=== PATIENT | female | born 1985 | race Caucasian/White ===

== ENCOUNTER 2024-03-31 15:30 | Emergency (ER) | payer OTHER, SELFPAY ==
--- NOTE | ~2024-03-31 | XR_ITS ---
3 VIEWS LUMBAR SPINE Ordering provider: Porsche Mahmood APRN History: . fall . Comparison: None. FINDINGS: VERTEBRAL BODIES: No visible fracture or subluxation. Mild degenerative changes. Severe bending of th e coccyx. DISK SPACES: Mild narrowing of the disc L3-L4, L4-L5 and L5-S1. Facet joint disease at the level of L 4-L5 and L5-S1. SOFT TISSUES: Normal. IMPRESSION: No acute osseous abnormality lumbar spine. Multilevel degenerative disc disease. Reviewed, dictated and finalized at location A. [employer]
--- NOTE | ~2024-03-31 | XR_ITS ---
XR hip LT min 2V Ordering provider: Porsche Mahmood APRN History: . left post hip mid low back pain s/p fall today . Comparison: None. FINDINGS: BONES: Lucency is seen in the left intertrochanteric area which may indicate a fracture. CT evaluatio n advised. HIP JOINT SPACES: Normal. SACROILIAC JOINT SPACES/LUMBAR SPINE: The sacroiliac joint spaces are normal. Normal visualized lower lumbar spine. PUBIC SYMPHYSIS: Normal. SOFT TISSUES: Normal. IMPRESSION: Lucency in the left intertrochanteric area which may indicate a fracture. CT evaluation advised. Reviewed, dictated and finalized at location A. FING BRANCH MANAGER IMPRESSION: Lucency in the left intertrochanteric area which may indicate a fracture. CT ev aluation advised.
--- NOTE | 2024-03-31 15:33 | ED_ITS ---
HPI - Fall General Chief Complaint: Fall Stated Complaint: FALL Time Seen by Provider: 03/31/24 15:31 Source: patient Mode of arrival: ambulatory Limitations: no limitations History of Present Illness HPI Narrative: Patient is a 39-year-old female presents with low back pain and left hip pain after falling on eyes taking out the trash at work today. Patient also has minor abrasions on hands from catching herself. Denies any numbness, tingling, weakness to lower extremities. Denies hitting her head on fall. Able to walk with normal gait. Related Data Home Medications Medication Instructions Recorded Confirmed cetirizine 10 mg tablet 10 mg PO DAILY 03/31/24 03/31/24 cyclobenzaprine 5 mg tablet 5 mg PO TID 03/31/24 03/31/24 pantoprazole 40 mg tablet,delayed 40 mg PO DAILY 03/31/24 03/31/24 release trazodone 50 mg tablet 50 mg PO HS 03/31/24 03/31/24 Allergies Allergy/AdvReac Type Severity Reaction Status Date / Time No Known Allergies Allergy Unknown Verified 03/31/24 15:35 Review of Systems Review of Systems: All systems reviewed & are unremarkable except as noted in HPI and below Constitutional: Constitutional: Denies body ache(s), Denies chills, Denies fatigue, Denies fever(s), Denies headache(s), Denies malaise and Denies weakness Eyes: Eyes: Denies blurry vision, Denies irritation and Denies loss of vision ENT: Denies otalgia, Denies headache(s), Denies nasal discharge, Denies sinus pain and Denies sore throat Cardiovascular: Cardiovascular: Denies chest pain, Denies irregular heart rhythm and Denies dyspnea Respiratory: Respiratory: Denies dyspnea Gastrointestinal: Gastrointestinal: Denies abdominal pain, Denies melena, Denies hematochezia, Denies diarrhea, Denies nausea and Denies vomiting Musculoskeletal: Musculoskeletal: Reports back pain, Denies myalgias and Denies arthralgias Integumentary/Breasts: Skin/Breast: Denies pruritus and Denies rash Neurologic: Denies headache(s), Denies loss of vision and Denies weakness Psychiatric: Psychiatric: Reports no additional psychiatric complaints Endocrine: Endocrine: Denies fatigue PMFSH Comments At time of signature, agree with nursing past medical, surgical, social and family history. There is no relevant family history pertinent to the presenting complaint. Exam Const: General: cooperative, healthy appearing, comfortable, no acute distress and well nourished Nutritional Appearance: well nourished Orientation/consciousness: patient oriented x3 Limitations: no limitations HENMT: Head: normal to inspection, normocephalic and atraumatic Ears: hearing grossly normal bilaterally and external ears normal Face/Nose/Sinus: Normal external nose present, normal facial exam and face symmetric Face and sinus: normal facial exam and face symmetric Mouth: Yes lip normal Eyes: General: appearance normal, both eyes and all related structures Alignment and Position: alignment normal and position normal Periorbital: periorbital findings normal Eyelids: eyelids normal Pupils: Equal, round and reactive pupils present EOM: EOMs intact bilaterally Neck: Neck: normal visual inspection, full ROM and supple Chest: Chest palpation & inspection: normal inspection of the chest Resp: Effort & Inspection: normal respiratory effort and able to speak in complete sentences Auscultation: clear to auscultation bilaterally Cardio: Rate: regular rate Rhythm: regular rhythm Heart sounds: S1 normal heart sound present and S2 normal heart sound present GI: Inspection: normal to inspection Back/Spine/Pelvis: Thoracic/Lumbar Spine: paraspinal muscle tenderness on the left in the mid lumbar and in the lower lumbar, No thoracic spinal tenderness and lumbar spinal tenderness at L3, at L4 and at L5 Pelvis: buttock tenderness on the left Skin: General skin exam: normal color and no rashes or lesions noted Neuro: General: patient oriented x3 and moves all extremities Cranial nerves: Yes Equal, round and reactive pupils present Speech: normal speech Gait exam (Neuro): Normal gait present Extrem: General: normal to inspection, full ROM and no edema Left lower extremity: hip/thigh Details: tenderness Location: of the hip Location: laterally and normal ROM; no swelling, no ecchymosis and no deformity Psych: Appearance: grossly normal and well kempt Mental Status: mental status grossly normal Speech and movement: Normal speech and movement present Affect: normal affect Attitude: cooperative Thought process: Normal thought process present Course Course Emergency Course: Patient transferred to [facility] for CT scan to evaluate for hip fracture per recommendations of radiologist Portions of this record may have been created with voice recognition software Level of Care: Express Care Visit Vital Signs Vital signs: Reviewed Transfer Transfered to: [facility] Transportation: Other (private) Transfer rationale: IMPRESSION: Lucency in the left intertrochanteric area which may indicate a fracture. CT evaluation advised. Accepting physician: Anderson FORD MDM - Fall MDM Narrative Medical decision making narrative: Patient transferred to [facility] for CT scan to evaluate for hip fracture per recommendations of radiologist her Differential Diagnosis Differential diagnosis: Likely compression fracture and other (Hip fracture) Medical Records Attestation: I reviewed the patient's medical records. Imaging Data Radiologist's impression: XR hip LT min 2V Ordering provider: Porsche Mahmood APRN History: . left post hip mid low back pain s/p fall today . Comparison: None. FINDINGS: BONES: Lucency is seen in the left intertrochanteric area which may indicate a fracture. CT evaluation advised. HIP JOINT SPACES: Normal. SACROILIAC JOINT SPACES/LUMBAR SPINE: The sacroiliac joint spaces are normal. Normal visualized lower lumbar spine. PUBIC SYMPHYSIS: Normal. SOFT TISSUES: Normal. IMPRESSION: Lucency in the left intertrochanteric area which may indicate a fracture. CT evaluation advised. 3 VIEWS LUMBAR SPINE Ordering provider: Porsche Mahmood APRN History: . fall . Comparison: None. FINDINGS: VERTEBRAL BODIES: No visible fracture or subluxation. Mild degenerative changes. Severe bending of the coccyx. DISK SPACES: Mild narrowing of the disc L3-L4, L4-L5 and L5-S1. Facet joint disease at the level of L4-L5 and L5-S1. SOFT TISSUES: Normal. IMPRESSION: No acute osseous abnormality lumbar spine. Multilevel degenerative disc disease. Discharge Plan Discharge Clinical Impression: Hip injury, Low back pain, Fall Patient Disposition: Acute Care Hospital Condition: Stable Prescriptions: No Action trazodone 50 mg tablet 50 mg PO HS cetirizine 10 mg tablet 10 mg PO DAILY pantoprazole 40 mg tablet,delayed release (DR/EC) 40 mg PO DAILY cyclobenzaprine 5 mg tablet 5 mg PO TID Follow-up/Referrals: UNKNOWN,DOCTOR [Non-Staff] - Time of Disposition: 16:56
[2024-03-31 15:43] VITALS: BP 125/83; PULSE 96; RESP 16; TEMP 36.6; O2SAT 98
== END 2024-03-31 16:50 | disposition short-term general hospital (02) ==
PROVIDERS: Emergency Provider Nurse Practitioner Family
DX: S79.912A Unspecified injury of left hip, initial encounter (principal); W19.XXXA Unspecified fall, initial encounter; M54.50 Low back pain, unspecified; K21.9 Gastro-esophageal reflux disease without esophagitis
CPT/HCPCS: 72100; 73502; 99213; G0463

== ENCOUNTER 2024-03-31 17:14 | Emergency (ER) | payer OTHER, SELFPAY ==
--- NOTE | ~2024-03-31 | CT_ITS ---
Procedure: CT hip LT wo con Ordering provider: Anitha Marie History: . L hip injury s/p fall, x-ray done at outside facil . Comparison: None. Technique: Thin slice axial CT of the No IV contrast was given. Sagittal and coronal reformatted imag es were also obtained and reviewed. Findings: BONES: No evidence of fracture or dislocation. Severe bending of the coccyx. Normal visualized portio n of the lumbar spine. Small sclerotic areas seen in the anterior acetabulum Left sacroiliitis. JOINT SPACES: Normal. SOFT TISSUES: Normal. Left inguinal lymph nodes with the largest measures 1.1 cm. IMPRESSION: No evidence of fractures seen. Reviewed, dictated and finalized at location A. CE FILLER
[2024-03-31 17:31] VITALS: BP 115/83; PULSE 90; RESP 16; TEMP 36.6; O2SAT 100
--- NOTE | 2024-03-31 17:40 | ED_ITS ---
HPI - Extremity Injury (Lower) General Chief Complaint: Extremity Injury, Lower <Aintha Marie APRN - Last Filed: 03/31/24 17:49> Stated Complaint: fall onto bottom and L. hip <Anitha Marie APRN - Last Filed: 17:49> Time Seen by Provider: 03/31/24 17:30 <Anitha Marie APRN - Last Filed: 03/31/24 17:49> Focused HPI: Patient is a 39-year-old female who presents to the ER after falling on the ice. She reports she was bringing the garbage out to the dumpster when she slipped on ice, falling onto her L hip. Patient reports she went to urgent care where they did x-rays and diagnosed her with a possible broken hip. It was recommended by the outside facility that patient have a CT scan performed. Patient endorses difficulty with ambulation and increased pain with any manipulation. She denies any pertinent medical history related to this ER visit. GENERAL: Well-appearing, well-nourished, and in no acute distress. HEAD: Normocephalic, atraumatic. CHEST: Clear to auscultation. ?No respiratory distress. HEART: Regular rate and rhythm.? NEURO: ?Alert and oriented x3. Patient screened in triage and initial orders placed.? ?Additional care and disposition to be based upon?diagnostic testing and treatment. <Anitha Marie APRN - Last Filed: 03/31/24 17:49> History of Present Illness HPI Narrative: agree with above <Beverly Soriano MD - Last Filed: 03/31/24 21:07> Related Data Home Medications: Home Medications Medication Instructions Recorded Confirmed cetirizine 10 mg tablet 10 mg PO DAILY 03/31/24 03/31/24 cyclobenzaprine 5 mg tablet 5 mg PO TID 03/31/24 03/31/24 pantoprazole 40 mg tablet,delayed 40 mg PO DAILY 03/31/24 03/31/24 release trazodone 50 mg tablet 50 mg PO HS 03/31/24 03/31/24 <Anitha Marie APRN - Last Filed: 03/31/24 17:49> Allergies/Adverse Reactions: Allergies Allergy/AdvReac Type Severity Reaction Status Date / Time No Known Allergies Allergy Unknown Verified 03/31/24 17:16 <Anitha Marie APRN - Last Filed: 03/31/24 17:49> Review of Systems Review of Systems: All systems reviewed & are unremarkable except as noted in HPI and below <Beverly Soriano MD - Last Filed: 03/31/24 21:07> Exam Narrative: GENERAL: Well-appearing, No acute distress HEAD: Normocephalic, atraumatic. EYES: PERRLA and EOMI. ENT: grossly unremarkable NECK: Supple. CHEST: No respiratory distress. HEART: Regular rate and rhythm ABDOMEN: Soft, nontender, nondistended EXTREMITIES: Normal range of motion. tender with palpation left lateral hip into the left buttocks SKIN: Warm, dry, no rash. NEURO: No focal deficits. Alert and oriented x3. PSYCH: Normal mood and affect. <Beverly Soriano MD - Last Filed: 03/31/24 21:07> Course Vital Signs Vital signs: Vital Signs Temperature 97.9 F 03/31/24 17:31 Pulse Rate 90 03/31/24 17:31 Respiratory Rate 16 03/31/24 17:31 Blood Pressure 115/83 03/31/24 17:31 Pulse Oximetry 100 03/31/24 17:31 Temperature 97.5 F L 03/31/24 20:40 Pulse Rate 86 03/31/24 20:40 Respiratory Rate 18 03/31/24 20:40 Blood Pressure 115/82 03/31/24 20:40 Pulse Oximetry 99 03/31/24 20:40 <Anitha Marie APRN - Last Filed: 03/31/24 17:49> Vital Signs Temperature 97.9 F 03/31/24 17:31 Pulse Rate 90 03/31/24 17:31 Respiratory Rate 16 03/31/24 17:31 Blood Pressure 115/83 03/31/24 17:31 Pulse Oximetry 100 03/31/24 17:31 Temperature 97.5 F L 03/31/24 20:40 Pulse Rate 86 03/31/24 20:40 Respiratory Rate 18 03/31/24 20:40 Blood Pressure 115/82 03/31/24 20:40 Pulse Oximetry 99 03/31/24 20:40 <Beverly Soriano MD - Last Filed: 03/31/24 21:07> MDM - Extremity Injury (Lower) MDM Narrative Medical decision making narrative: 39-year-old female presenting with left hip pain after a fall. X-rays were equivocal at urgent care so she was sent here for CT scan. Blood work is unremarkable. CT scan shows no fracture involving the hip. She is safe for outpatient management. Ibuprofen and Tylenol for pain control. PCP follow-up. Appropriate return precautions given. She is agreeable this plan. Discharged in stable condition. <Beverly Soriano MD - Last Filed: 03/31/24 21:07> Differential Diagnosis Differential diagnosis: Likely fracture of femur and other (hip fracture, hip strain, fall) <Beverly Soriano MD - Last Filed: 03/31/24 21:07> Medical Records Attestation: I reviewed the patient's medical records. <Beverly Soriano MD - Last Filed: 03/31/24 21:07> Lab Data Attestation: I reviewed the patient's lab results. <Beverly Soriano MD - Last Filed: 03/31/24 21:07> Result diagrams: 03/31/24 17:52 03/31/24 17:52 <Anitha Marie APRN - Last Filed: 03/31/24 17:49> Labs: Lab Results 03/31/24 Range/Units 17:52 WBC 6.7 (4.5-10.0) K/mm3 RBC 5.04 (4.2-5.4) M/mm3 Hgb 14.2 (12.0-15.0) g/dL Hct 40.9 (37.0-47.0) % MCV 81.2 (80-100) fl MCH 28.2 (26-34) pg MCHC 34.7 (32-36) g/dl RDW 13.1 (11.5-14.5) % Plt Count 279 (150-375) k/mm3 MPV 9.5 (7.4-10.4) fl Immature Gran % (Auto) 0.1 (0-0.5) % Neut % (Auto) 64.8 (45.5-73.1) % Lymph % (Auto) 29.8 (18.3-44.2) % [place] % (Auto) 4.0 (2.6-8.5) % Eos % (Auto) 0.6 (0-4.4) % Baso % (Auto) 0.7 (0.2-1.2) % Lymph # (Auto) 2.01 (0.9-3.2) K/mm3 [place] # (Auto) 0.3 (0.1-0.6) K/mm3 Eos # (Auto) 0.0 (0-0.3) K/mm3 Baso # (Auto) 0.1 (0.0-0.1) K/mm3 Abs Immat Gran (auto) 0.01 (0.00-0.031) K/mm3 Absolute Neuts (auto) 4.4 (1.3-6.7) K/mm3 Absolute Nucleated RBC 0.000 (0.0-0.012) K/mm3 Nucleated RBC % 0.0 (0.0-0.2) % Sodium 136 L (137-145) mmol/L Potassium 3.8 (3.4-5.0) mmol/L Chloride 106 (98-107) mmol/L Carbon Dioxide 26 (22-30) mmol/L Anion Gap 4 (4-12) mmol/L BUN 16 (7-17) mg/dL Creatinine 0.90 (0.7-1.0) mg/dL Estim Creat Clear Calc 91 ml/min Estimated GFR > 60 (59 - ) Glucose 96 (65-110) mg/dL Calcium 9.7 (8.4-10.2) mg/dL Total Bilirubin 0.5 (0.2-1.3) mg/dL AST 23 (14-36) U/L ALT 16 (6-35) U/L Alkaline Phosphatase 101 (38-126) U/L Total Protein 7.0 (6.3-8.2) g/dL Albumin 4.4 (3.5-5.1) g/dL <Anitha Marie, DEEP TISSUE MASSAGE THERAPIST - Last Filed: 03/31/24 17:49> Lab Results 03/31/24 Range/Units 17:52 WBC 6.7 (4.5-10.0) K/mm3 RBC 5.04 (4.2-5.4) M/mm3 Hgb 14.2 (12.0-15.0) g/dL Hct 40.9 (37.0-47.0) % MCV 81.2 (80-100) fl MCH 28.2 (26-34) pg MCHC 34.7 (32-36) g/dl RDW 13.1 (11.5-14.5) % Plt Count 279 (150-375) k/mm3 MPV 9.5 (7.4-10.4) fl Immature Gran % (Auto) 0.1 (0-0.5) % Neut % (Auto) 64.8 (45.5-73.1) % Lymph % (Auto) 29.8 (18.3-44.2) % Canadian % (Auto) 4.0 (2.6-8.5) % Eos % (Auto) 0.6 (0-4.4) % Baso % (Auto) 0.7 (0.2-1.2) % Lymph # (Auto) 2.01 (0.9-3.2) K/mm3 Canadian # (Auto) 0.3 (0.1-0.6) K/mm3 Eos # (Auto) 0.0 (0-0.3) K/mm3 Baso # (Auto) 0.1 (0.0-0.1) K/mm3 Abs Immat Gran (auto) 0.01 (0.00-0.031) K/mm3 Absolute Neuts (auto) 4.4 (1.3-6.7) K/mm3 Absolute Nucleated RBC 0.000 (0.0-0.012) K/mm3 Nucleated RBC % 0.0 (0.0-0.2) % Sodium 136 L (137-145) mmol/L Potassium 3.8 (3.4-5.0) mmol/L Chloride 106 (98-107) mmol/L Carbon Dioxide 26 (22-30) mmol/L Anion Gap 4 (4-12) mmol/L BUN 16 (7-17) mg/dL Creatinine 0.90 (0.7-1.0) mg/dL Estim Creat Clear Calc 91 ml/min Estimated GFR > 60 (59 - ) Glucose 96 (65-110) mg/dL Calcium 9.7 (8.4-10.2) mg/dL Total Bilirubin 0.5 (0.2-1.3) mg/dL AST 23 (14-36) U/L ALT 16 (6-35) U/L Alkaline Phosphatase 101 (38-126) U/L Total Protein 7.0 (6.3-8.2) g/dL Albumin 4.4 (3.5-5.1) g/dL <Beverly Soriano MD - Last Filed: 03/31/24 21:07> Imaging Data Radiologist's impression: ITS Impressions Hip CT 03/31/24 20:45 IMPRESSION: No evidence of fractures seen. <Beverly Soriano MD - Last Filed: 03/31/24 21:07> Critical Care Time Critical Care Time Critical Care Time: No <Beverly Soriano MD - Last Filed: 03/31/24 21:07> Discharge Plan Discharge Clinical Impression: Hip injury, Fall <Anitha Marie APRN - Last Filed: 03/31/24 17:49> Patient Disposition: Home, Self-Care <Anitha Marie APRN - Last Filed: 03/31/24 17:49> Condition: Stable <Anitha Marie APRN - Last Filed: 03/31/24 17:49> Instructions: Antibiotic Form, Hip Pain (ED) <Anitha Marie APRN - Last Filed: 03/31/24 17:49> Additional Instructions: A CT scan today shows no fracture involving your hip. Please use Tylenol and ibuprofen for pain control. You may use the [place] for severe breakthrough pain. Follow-up with your PCP. If your symptoms worsen or other concerning symptoms arise, please return to the ER. <Anitha Marie APRN - Last Filed: 03/31/24 17:49> Prescriptions: New hydrocodone-acetaminophen 5-325 mg tablet 1 tablet PO Q8H PRN (Reason: pain) Qty: 5 0RF No Action trazodone 50 mg tablet 50 mg PO HS cetirizine 10 mg tablet 10 mg PO DAILY pantoprazole 40 mg tablet,delayed release (DR/EC) 40 mg PO DAILY cyclobenzaprine 5 mg tablet 5 mg PO TID <Anitha Marie APRN - Last Filed: 03/31/24 17:49> Follow-up/Referrals: PHYSICIAN NOT ON STAFF,NONSTAFF [Non-Staff] - <Anitha Marie APRN - Last Filed: 03/31/24 17:49> Stand Alone Forms: Work/School Release IP <Anitha Marie APRN - Last Filed: 03/31/24 17:49>
[2024-03-31 18:06] LABS: Basophils Absolute Auto 0.1 K/mm3 (0.0-0.1); Basophils Percent Auto 0.7 % (0.2-1.2); Eosinophils Percent Auto 0.6 % (0-4.4); Hematocrit 40.9 % (37.0-47.0); Hemoglobin 14.2 g/dL (12.0-15.0); Immature Granulocyte Absolute 0.01 K/mm3 (0.00-0.031); Immature Granulocyte Percent A 0.1 % (0-0.5); Lymphocytes Absolute Auto 2.01 K/mm3 (0.9-3.2); Lymphocytes Percent Auto 29.8 % (18.3-44.2); Mean Corpuscular HGB Conc 34.7 g/dl (32-36); Mean Corpuscular Hemoglobin 28.2 pg (26-34); Mean Corpuscular Volume 81.2 fl (80-100); Mean Platelet Volume 9.5 fl (7.4-10.4); Monocytes Absolute Auto 0.3 K/mm3 (0.1-0.6); Neutrophils Absolute Auto 4.4 K/mm3 (1.3-6.7); Neutrophils Percent Auto 64.8 % (45.5-73.1); Platelet Count Result 279 k/mm3 (150-375); Red Blood Count 5.04 M/mm3 (4.2-5.4); Red Cell Distribution Width 13.1 % (11.5-14.5); White Blood Count 6.7 K/mm3 (4.5-10.0)
[2024-03-31 18:16] LABS: Alanine Aminotransferase 16 U/L (6-35); Albumin Level 4.4 g/dL (3.5-5.1); Alkaline Phosphatase 101 U/L (38-126); Anion Gap 4 mmol/L (4-12); Aspartate Amino Transferase 23 U/L (14-36); Bilirubin,Total 0.5 mg/dL (0.2-1.3); Blood Urea Nitrogen 16 mg/dL (7-17); Calcium 9.7 mg/dL (8.4-10.2); Carbon Dioxide 26 mmol/L (22-30); Chloride 106 mmol/L (98-107); Estimated CRCL calculation 91 ml/min; Estimated Glomerular Filt Rate > 60; Glucose 96 mg/dL (65-110); Potassium 3.8 mmol/L (3.4-5.0); Sodium 136 mmol/L (137-145)
[2024-03-31] MEDS: HYDROcodone/acetaminophen (*CRX) 5-325 MG TABLET 1 TAB PO (18:19)
--- NOTE | 2024-03-31 18:21 | PC.NURSE ---
pt states they have IUD and no menstrual cycle in one year. unable to urinate at this time and requested to sign consent for CT before urine
[2024-03-31 19:27] VITALS: BP 126/82; PULSE 83; RESP 20; TEMP 36.6; O2SAT 100
[2024-03-31 20:40] VITALS: BP 115/82; PULSE 86; RESP 18; TEMP 36.4; O2SAT 99
[2024-03-31] MEDS: IBUPROFEN 600 MG TABLET PO (21:16)
== END 2024-03-31 21:25 | disposition home or self-care (01) ==
PROVIDERS: Registered Nurse; Emergency Provider Emergency Medicine
DX: S79.912A Unspecified injury of left hip, initial encounter (principal); W00.0XXA Fall on same level due to ice and snow, initial encounter
CPT/HCPCS: 36415; 73700; 80053; 85025; 99284; A9270